=== PATIENT | female | born 1990 | race Caucasian/White ===

== ENCOUNTER 2024-05-23 13:54 | Emergency (ER) | payer BC, SELFPAY ==
[2024-05-23 13:56] VITALS: BMI 31.2
[2024-05-23 14:37] VITALS: BP 129/86; PULSE 90; RESP 18; TEMP 36.7; O2SAT 99
--- NOTE | 2024-05-23 14:44 | XR_ITS ---
Examination: Knee, right , 3 views Technique: Knee AP, lateral, oblique 3 views Date and time of exam: May 23, 2024 1515 hours INDICATIONS: Patient got kicked in the knee bilateral coarse 3 days ago with knee pain. FINDINGS: Mild osteopenia. No fracture Moderate knee effusion IMPRESSION: No fracture Moderate knee effusion
--- NOTE | 2024-05-23 14:45 | EDNOTE_ITS ---
<Statement entered by Ami Persaud MD - 05/24/24 07:40> As co-signing physician, I was present and available for consult prn. I concur with the plan and care as documented by the midlevel provider. Lower Extremity Injury RME/HPI General Chief Complaint: Extremity Injury, Lower Stated Complaint: RIGHT KNEE INJURY, FALL FROM HORSE 2 DAYS AGO Time Seen by Provider: 05/23/24 14:25 Arrival date/time: 05/23/24 13:54 RME / HPI RME / HPI Narrative: 34-year-old female patient came in for evaluation regarding right knee pain. Onset of symptoms 3 days ago patient fell off the horse and resulting into right knee pain. Patient is ambulatory but with mild limping. Patient denies any LOC denies any neck pain denies any other injury. Patient is not taking anything for pain. Related Data Previous Rx's ?Medication ?Instructions ?Recorded acetaminophen 300 mg-codeine 30 mg 1 tab PO Q6H PRN pa in #15 tabs 09/10/20 tablet cyclobenzaprine 10 mg tablet 10 mg PO TID PRN muscle s pasm #20 09/10/20 tabs prednisone 50 mg tablet 50 mg PO QDAY #5 tabs Allergies Allergy/AdvReac Type Severity Reaction Status Date / Time hydrocodone (From [place]) Allergy Vomiting Verified 05/23/24 13:55 Review of Systems Review of Systems Narrative Review of Systems: Review of system reviewed and within normal limits except mentioned in HPI ED Exam Narrative Physical exam: VITAL SIGNS: Reviewed. GENERAL APPEARANCE: Alert and interactive, follows commands, no acute distress, HEAD AND FACE: Non-traumatic. ENT: PERRL, pink conjunctivitis, eyelid no trauma, Mucous membrane moist. NECK: Supple, nontender, no nuchal rigidity. CHEST: No tenderness, no crepitus, no paradoxical movement, no retractions. LUNGS: Clear, well ventilated, symmetric, no rales, no wheezing, no ronchi, no stridor, good breath sounds bilaterally. HEART: Regular rate, regular rhythm, no murmur, no gallops. ABDOMEN: Soft, positive bowel sounds, nondistended, no guarding, nontender, no rebound, no masses, RECTAL: Deferred. GENITAL: Deferred. NEUROLOGICAL: Gross motor function intact sensory function intact, Appropriate for age. MUSCULOSKELETAL: low back nontender, full range of motion. EXTREMITIES: Right knee tenderness, no swelling no deformity, full range of motion. SKIN: Color pink, dry, no rash, no lacerations, no abrasions, no contusions. LYMPHATICS: Deferred. Course Quality Measures none Orders Category Date Time Status XR knee limited RT 2V Stat Exams 05/23/24 14:44 Completed Ibuprofen Tab [Motrin Tab] Med 05/23/24 14:44 Discontinued 800 mg PO X1 ONE Vital Signs Vital signs: Vital Signs Temperature 98.1 F 05/23/24 14:37 Pulse Rate 90 05/23/24 14:37 Respiratory Rate 18 05/23/24 14:37 Blood Pressure 129/86 H 05/23/24 14:37 Pulse Oximetry (%) 99 05/23/24 14:37 Oxygen Delivery Method Room Air 05/23/24 14:37 Extremity Injury, Lower MDM Narrative MDM Narrative:: 34-year-old female patient came in for evaluation regarding right knee pain. Onset of symptoms 3 days ago patient fell off the horse and resulting into right knee pain. Patient is ambulatory but with mild limping. Patient denies any LOC denies any neck pain denies any other injury. Patient is not taking anything for pain. X-ray of the knee came back unremarkable except for mild knee effusion. Results discussed with the patient. Patient was advised to closely follow-up with PCP and for outpatient MRI of the knee to rule out meniscal or ligamental injury if symptoms persist. Patient appears nontoxic and hemodynamically stable. Patient discharged home and instructed to follow-up with primary care provider in 24 to 48 hours. Instructed to return to the emergency department immediately if worsening of symptoms Patient data External records reviewed:: None Clinical information provided by:: none Social determinants that could affect healthcare access:: none Patient has the following chronic illnesses:: None How is presenting disease/condition affected by chronic disease/condition?: no chronic disease Evaluation data The following diagnostics were reviewed and interpreted by me:: radiology exam(s) Lab and/or radiology exams considered but not ordered:: None Interpretation Summary: See results in MDM Medications / Prescriptions Medications or Prescriptions considered but not ordered:: None Medication administrations:: Medication Administration History Discontinued Medications Ibuprofen (Ibuprofen Tab 400 Mg Tablet) 800 mg PO X1 ONE Stop: 05/23/24 14:45 Last Admin: 05/23/24 15:14 Dose: Not Given Documented By: OA Non-Admin Reason: Patient Refused Motrin Consultations Consultation(s) initiated? (list below): No Diagnosis Extremity Injury, Lower Differential Diagnosis: other (Knee pain, knee dislocation knee fracture) Most likely diagnosis given after review of the tests above:: Knee pain Admission Indicated Admission indicated?: not indicated Admission Request Was there a request for admission?: No Disposition Plan Disposition Plan: Discharge Discharge Attestation Discharge Attestation: The patient and all family members were given an opportunity to ask questions and understood the discharge instructions. Discharge instructions specifically effects, indications for sooner follow up or return to the emergency department, and the expected course of current diagnosis. Patient condition: Stable Discharge Plan Plan Patient Disposition: HOME (Self Care) Disposition Comment: stable Prescriptions/Referrals Prescriptions/Med Rec: No Action prednisone 50 mg tablet 50 mg PO QDAY Qty: 5 0RF cyclobenzaprine 10 mg tablet 10 mg PO TID PRN (Reason: muscle spasm) Qty: 20 0RF acetaminophen-codeine 300-30 mg tablet 1 tab PO Q6H PRN (Reason: pain) Qty: 15 0RF Referrals: Ebenezer Walters MD [Primary Care Provider] - In 1 week Problem List Clinical Impression: Acute knee pain Patient/Caregiver Discharge Instructions Discharge Activity: activity as tolerated Education Materials: Knee Pain Additional Instructions: Thank you for the opportunity for serving you today. You are stable for discharged . You are advised to: Follow-up with your PCP in 1 to 2 days and asked for referral to sports MD or outpatient MRI of your knee to rule out meniscal injury or ligamental injury. Return to ED for worsening of symptoms Increase oral fluids Take [id number] Tylenol Motrin as needed for pain Print Language: Montenegrin Stand Alone Forms: Dianelys Award Info., Patient Portal Info Letter LEONARDO/ANGEL Supervising Physician LEONARDO/ANGEL Supervising Physician: MD Cori
[2024-05-23 15:07] VITALS: BP 119/81; PULSE 82; RESP 19; TEMP 36.8; O2SAT 98
== END 2024-05-23 17:15 | disposition home or self-care (01) ==
PROVIDERS: Emergency Provider Emergency Medicine; PCP Family Medicine
DX: M25.561 Pain in right knee (principal); V80.010A Animal-rider injured by fall from or being thrown from horse in noncollision accident, initial encounter; Y93.52 Activity, horseback riding
CPT/HCPCS: 73560; 99283

== ENCOUNTER → 2024-09-12 | Outpatient (CLI) | payer BC, SELFPAY ==
[2024-09-12 10:22] LABS: Basophils # (Auto) 0.1 Thou/mm3 (0.0-0.2); Basophils % (Auto) 1 % (0-2.5); Eosinophils # (Auto) 0.4 Thou/mm3 (0.0-0.5); Eosinophils % (Auto) 5 % (0-10); Hemoglobin 14.1 g/dL (12.0-16.0); Immature Granulocytes % (Auto) 0 % (0-0); Immature Granulocytes Auto 0.04 Thou/mm3 (0.00-0.00); Lymphocytes # (Auto) 2.3 Thou/mm3 (1.0-4.8); Lymphocytes % (Auto) 24 % (10-50); Mean Corpuscular HGB Conc 34.4 g/dl (31.0-37.0); Mean Corpuscular Hemoglobin 31.6 pg (25.0-35.0); Mean Corpuscular Volume 92 fL (80-100); Monocytes # (Auto) 0.8 Thou/mm3 (0.0-0.8); Monocytes % (Auto) 8 % (0-12); Neutrophils # (Auto) 5.9 Thou/mm3 (1.8-7.7); Neutrophils % (Auto) 62 % (37-80); Nucleated Red Blood Cell % 0 /100 WBC (0); Platelet Count 501 Thou/mm3 (140-440); RDW Standard Deviation 43.3 fL (36.4-46.3); Red Blood Count 4.46 Miln/mm3 (4.00-5.20); White Blood Count 9.5 Thou/mm3 (3.6-11.0)
[2024-09-12 10:40] LABS: Alanine Aminotransferase 34 U/L (10-49); Albumin, Serum 4.6 gm/dL (3.5-5.0); Albumin/Globulin Ratio 1.8 (1.2-2.2); Alkaline Phosphatase 52 U/L (46-116); Anion Gap 8 (7-16); Aspartate Amino Transferase 19 U/L (0-34); BUN/Creatinine Ratio 10 Ratio (12-20); Bilirubin,Total 0.4 mg/dL (0.3-1.2); Blood Urea Nitrogen 9 mg/dL (9-23); Calcium 9.1 mg/dL (8.3-10.6); Calcium (Corrected) 9.1 mg/dL (8.5-10.1); Carbon Dioxide 26.1 mMol/L (20.0-31.0); Chloride 104 mMol/L (98-107); Creatinine (Component) 0.9 mg/dL (0.6-1.3); Globulin 2.5 gm/dL (2.3-3.5); Glucose 90 mg/dL (74-106); Osmolality,Calculated 274 (275-295); Sodium 138 mMol/L (136-145); Thyroid Stimulating Hormone 0.52 uIU/mL (0.55-4.78); Total Protein 7.1 gm/dL (5.7-8.2); eGFR > 60 See Note
[2024-09-12 10:43] LABS: T4 (Thyroxine) 9.3 mcg/dL (4.5-10.9)
[2024-09-18 06:44] LABS: ANA Screen, IFA NEGATIVE (NEGATIVE); Complement Component C3* 136 mg/dL (83-193); DNA (ds) Antibody* 2 IU/mL
== END | disposition home or self-care (01) ==
LOC: COPL 09:04
PROVIDERS: PCP Family Medicine; Referring Provider Family Medicine; Visit Provider Family Medicine
DX: F33.0 Major depressive disorder, recurrent, mild (principal); M35.00 Sjogren syndrome, unspecified; M79.18 Myalgia, other site; R22.1 Localized swelling, mass and lump, neck
CPT/HCPCS: 36415; 80053; 84436; 84443; 85025; 86038; 86160; 86225

== ENCOUNTER 2024-10-10 08:30 | Outpatient (RCR) | payer BC, SELFPAY ==
--- NOTE | 2024-10-09 08:30 | XR_ITS ---
Examination: Nuclear medicine thyroid uptake and scan TECHNIQUE: Oral administration 287 uCi I-123, 6 hour 24 hour uptake values recorded as well as anterior oblique scans Date and time: October 09, 2024, 0805 hours Comparison November 07, 2016 INDICATIONS: Localized mass swelling and lump in the neck right side of the neck swelling with pain The ultrasound thyroid 2017 significant thyromegaly with FINDINGS: 6 hour uptake 22.4% normal range 6-24%, 24-hour uptake 32.2% normal range 10-36% Homogeneous thyroid scans IMPRESSION: High normal thyroid uptake values
[2024-10-09 08:45] LABS: HCG Qualitative,Urine Negative
== END 2024-10-15 23:59 | disposition home or self-care (01) ==
LOC: SNUC 08:30
PROVIDERS: PCP Family Medicine; Referring Provider Family Medicine; Visit Provider Family Medicine
DX: R22.1 Localized swelling, mass and lump, neck (principal); Z32.00 Encounter for pregnancy test, result unknown
CPT/HCPCS: 78013; 81025; A9516

== ENCOUNTER 2025-03-02 18:02 | Emergency (ER) | payer BC, SELFPAY ==
[2025-03-02 18:03] VITALS: BMI 31.7
[2025-03-02 18:29] VITALS: BP 127/89; PULSE 82; RESP 16; TEMP 36.9; O2SAT 97
--- NOTE | 2025-03-02 18:44 | EDNOTE_ITS ---
ED Female Urogenital RME/HPI General Chief complaint: Urogenital-Female Stated complaint: LOST TAMPON STRING IN VAG AREA Time Seen by Provider: 03/02/25 18:30 Arrival date/time: 03/02/25 18:02 RME / HPI RME / HPI Narrative: Healthy 35-year-old female presents to the ER complaining of possible tampon being stuck inside of her since 4:30 PM. Denies any fever, nausea, vomiting, abnormal discharge, pain with urination, pain with intercourse. Related Data Previous Rx's ?Medication ?Instructions ?Recorded acetaminophen 300 mg-codeine 30 mg 1 tab PO Q6H PRN pa in #15 tabs 09/10/20 tablet cyclobenzaprine 10 mg tablet 10 mg PO TID PRN muscle s pasm #20 09/10/20 tabs prednisone 50 mg tablet 50 mg PO QDAY #5 tabs Allergies Allergy/AdvReac Type Severity Reaction Status Date / Time hydrocodone (From [place]) Allergy Vomiting Verified 03/02/25 18:05 ED Exam Narrative Physical exam: Full exam constitutional: Patient alert and oriented. Well appearing. No acute distress. Not toxic appearing. Head: Normocephalic, atraumatic. Eyes: Periorbital regions bilaterally normal to inspection. Conjunctiva clear bilaterally. Sclera anicteric bilaterally. Pupils equal, round, reactive to light bilaterally. Extraocular movements intact bilaterally. Mouth/Throat: Mucous membranes moist. No stridor or muffled voice. No trismus. Handling secretions without difficulty. Airway widely patent. Neck: Supple. Trachea midline. No JVD. No nuchal rigidity. Normal range of motion. Respiratory: Normal effort. Abdomen: Soft. Non-distended. Non-tender throughout. No pulsatile mass. No guarding or rebound. Negative Najera?s sign. Negative McBurney?s point tenderness. Negative Rovsing?s. Upper Extremities: No gross deformities. Lower Extremities: No gross deformities. No edema or calf tenderness. Neuro: Speech normal. No gross motor or sensory deficits to upper or lower extremities bilaterally. GCS 15. CN II?XII grossly intact. Skin: Warm, dry, normal color. Psych: Normal affect. Cooperative. Normal insight. 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 scant vaginal bleeding noted inside the vaginal fornix. no discharge abnormal vaginal discharge, no cervical motion tenderness, no adnexal masses or tenderness to palpation bilaterally Course Quality Measures none Vital Signs Vital signs: Vital Signs Temperature 98.4 F 03/02/25 18:29 Pulse Rate 82 03/02/25 18:29 Respiratory Rate 16 03/02/25 18:29 Blood Pressure 127/89 H 03/02/25 18:29 Pulse Oximetry (%) 97 03/02/25 18:29 Oxygen Delivery Method Room Air 03/02/25 18:29 Urogenital - Female MDM Narrative MDM Narrative:: Patient was concerned because she could not feel the strings of her tampon which she had placed at 4:30 PM requesting that we exclude a foreign body in her vaginal cavity No foreign body noted Patient was without any urinary symptoms therefore doubt occult UTI Patient without any abnormal cervical discharge therefore doubt STD Advised patient to follow-up with her PCP this week, strict ER return precautions advised Patient data External records reviewed:: [facility] previous records Clinical information provided by:: patient Social determinants that could affect healthcare access:: none Patient has the following chronic illnesses:: None How is presenting disease/condition affected by chronic disease/condition?: no chronic disease Evaluation data The following diagnostics were reviewed and interpreted by me:: other (specify) Lab and/or radiology exams considered but not ordered:: Additional Labs and radiology considered, but not ordered as they were not clinically indicated at this time. Interpretation Summary: None Medications / Prescriptions Medications or Prescriptions considered but not ordered:: I considered prescription management (both outpatient prescriptions AND drug treatment in the ER) and decided that this was not necessary Medication administrations:: None Consultations Consultation(s) initiated? (list below): No Diagnosis Urogenital Female Differential Diagnosis: bacterial vaginosis, cervicitis and vaginitis Most likely diagnosis given after review of the tests above:: foreign body excluded Admission Indicated Admission indicated?: not indicated Admission Request Was there a request for admission?: No Disposition Plan Disposition Plan: Discharge Discharge Attestation Discharge Attestation: The patient and all family members were given an opportunity to ask questions and understood the discharge instructions. Discharge instructions specifically effects, indications for sooner follow up or return to the emergency department, and the expected course of current diagnosis. Patient condition: Stable Discharge Plan Plan Patient Disposition: HOME (Self Care) Patient condition on transfer: Stable Prescriptions/Referrals Prescriptions/Med Rec: No Action prednisone 50 mg tablet 50 mg PO QDAY Qty: 5 0RF cyclobenzaprine 10 mg tablet 10 mg PO TID PRN (Reason: muscle spasm) Qty: 20 0RF acetaminophen-codeine 300-30 mg tablet 1 tab PO Q6H PRN (Reason: pain) Qty: 15 0RF Problem List Clinical Impression: Encounter for wellness examination Patient/Caregiver Discharge Instructions Additional Instructions: Follow up with your primary medical doctor within 24 hours. Return to the Emergency Room immediately for any new, worsening, continuing symptoms or any concerns at all. Return to the Emergency Room within 24 hours if you are unable to follow up with your primary medical doctor within 24 hours. Print Language: Micronesian Stand Alone Forms: Dianelys Award Info., Patient Portal Info Letter PA/PARTNERSHIP DEVELOPMENT MANAGER Supervising Physician PA/PARTNERSHIP DEVELOPMENT MANAGER Supervising Physician: Dr. Chase
== END 2025-03-02 19:57 | disposition home or self-care (01) ==
LOC: SERX 19:20
PROVIDERS: Emergency Provider Physician Assistant; PCP Family Medicine
DX: Z00.00 Encounter for general adult medical examination without abnormal findings (principal)
CPT/HCPCS: 80053; 81001; 85025; 99281

== ENCOUNTER → 2025-03-05 | Outpatient (CLI) | payer BC, SELFPAY ==
[2025-03-05 09:40] LABS: Free T4 (Free Thyroxine) 1.37 ng/dL (0.89-1.76); Thyroid Stimulating Hormone 0.69 uIU/mL (0.55-4.78)
[2025-03-11 06:23] LABS: T3,Total* 134 ng/dL (76-181); Thyroid Peroxidase Antibodies* <1 IU/mL (<9)
== END | disposition home or self-care (01) ==
LOC: COPL 08:37
PROVIDERS: PCP Family Medicine; Referring Provider Internal Medicine Endocrinology, Diabetes & Metabolism; Visit Provider Internal Medicine Endocrinology, Diabetes & Metabolism
DX: E04.1 Nontoxic single thyroid nodule (principal)
CPT/HCPCS: 36415; 84439; 84443; 84480; 86376